=== PATIENT | female | born 1960 | race African-American/Black ===

== ENCOUNTER 2017-11-20 10:23 | Emergency (ER) | payer OTHER ==
[2017-11-20 10:38] VITALS: BP 133/89
[2017-11-20] MEDS ORDERED: ZOFRAN ODT PO ONE (10:58)
[2017-11-20] MEDS ORDERED: NORCO 5/325 PO ONE (10:58)
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
== END 2017-11-20 15:16 | disposition home or self-care (01) ==
LOC: ED 10:23
DX: S20.319A Abrasion of unspecified front wall of thorax, initial encounter (principal); S00.81XA Abrasion of other part of head, initial encounter; V89.2XXA Person injured in unspecified motor-vehicle accident, traffic, initial encounter; Y93.89 Activity, other specified; Y92.89 Other specified places as the place of occurrence of the external cause; Y99.8 Other external cause status
CPT/HCPCS: 70450; 71250; 72125; 99283; Q0162